=== PATIENT | female | born 1990 | race Caucasian/White ===

== ENCOUNTER 2021-10-08 09:19 | Inpatient (IN) | payer OTHER ==
[~2021-10-08] VITALS: Ht 157.5 cm; Wt 121.6 kg
[2021-10-08] MEDS ORDERED: TERBUTALINE SULFATE 1 MG/ML VIAL SUBCUT ONE (10:00)
[2021-10-08] MEDS ORDERED: OXYTOCIN/0.9 % SODIUM CHLORIDE 1,000 ML IV SCH (10:00)
[2021-10-08] MEDS ORDERED: BETAMET ACET/BETAMET NA PH 30 MG/5 ML VIAL IM ONE (10:00)
[2021-10-08 11:03] LABS: BASOPHILS # (AUTO) 0.3 K/uL (0.0-0.2); BASOPHILS % (AUTO) 3.9 % (0.0-2.0); EOSINOPHILS % (AUTO) 0.5 % (0.0-4.0); HEMATOCRIT 37.9 % (36-48); HEMOGLOBIN 12.6 g/dL (12.0-16.0); LYMPHOCYTES # (AUTO) 1.6 K/uL (1.0-5.5); LYMPHOCYTES % (AUTO) 17.8 % (20.5-51.5); MEAN CORPUSCULAR HEMOGLOBIN 29 pg (27-31); MEAN CORPUSCULAR HGB CONC 33 % (32-36); MEAN CORPUSCULAR VOLUME 87 fL (79.0-98.0); MONOCYTES # (AUTO) 0.5 K/uL (0.0-1.0); MONOCYTES % (AUTO) 5.3 % (1.7-9.3); NEUTROPHILS # (AUTO) 6.4 K/uL (1.8-7.7); NEUTROPHILS % (AUTO) 72.5 % (40.0-70.0); PLATELET COUNT (AUTO) 266 K/uL (130-430); RED BLOOD CELL COUNT(AUTO) 4.34 MIL/uL (4.2-6.2); RED CELL DISTRIBUTION WIDTH 14.7 % (9.0-15.0); WHITE BLOOD COUNT (AUTO) 8.8 K/uL (4.8-10.8)
[2021-10-08 11:11] LABS: INR 0.9 (0.8-1.2); PROTHROMBIN TIME 9.2 SECS (9.5-12.5)
[2021-10-08 11:30] VITALS: BP_SYST 121
[2021-10-08 11:44] LABS: ALBUMIN 2.7 g/dL (3.4-4.8); CALCIUM 8.4 mg/dL (8.4-11.0); CREATININE 0.81 mg/dL (0.55-1.30); TOTAL BILIRUBIN 0.3 mg/dL (0.0-1.0)
[2021-10-08] MEDS: LABETALOL HCL 100 MG TABLET PO SCH ×2 (15:19→21:08)
[2021-10-09] MEDS ORDERED: HYDROcodone/ACETAMIN 5-325 MG TAB (NORCO/ VICODIN) PO PRN (00:45)
[2021-10-09] MEDS ORDERED: FIORCET PO PRN (00:45)
[2021-10-09] MEDS ORDERED: ACETAMINOPHEN 325 MG TABLET PO PRN (00:45)
[2021-10-09] MEDS: LABETALOL HCL 100 MG TABLET PO SCH ×3 (08:57→20:51)
[2021-10-09] MEDS ORDERED: BETAMET ACET/BETAMET NA PH 30 MG/5 ML VIAL IM ONE (10:00)
--- NOTE | 2021-10-09 12:30 | NUR ---
Dietitian Recommendations * Continue regular diet * RD provided [address]ISELA ALONOS RD Please refer to Nutrition Assessment for details. Addendum: 10/09/21 at [address] Amended: Links added.
[2021-10-09] MEDS ORDERED: DINOPROSTONE 10 MG SUPP VG ONE (15:45)
[2021-10-10] MEDS ORDERED: TEMAZEPAM 15 MG CAPSULE PO PRN (02:15)
[2021-10-10] MEDS: MISOPROSTOL 100 MCG TABLET (CYTOTEC) PO PRN ×4 (02:27→16:02)
[2021-10-10] MEDS: LR 1,000 ML IV SCH ×2 (02:28→20:46)
[2021-10-10] MEDS ORDERED: ONDANSETRON HCL 4 MG/2 ML VIAL ONE (08:39)
[2021-10-10] MEDS: ONDANSETRON HCL 4 MG/2 ML VIAL IVP PRN (08:43)
[2021-10-10] MEDS: LABETALOL HCL 100 MG TABLET PO SCH ×4 (09:01→22:05)
[2021-10-10] MEDS: NALBUPHINE HCL 10 MG/ML AMP IVP PRN (20:42)
[2021-10-11] MEDS: NALBUPHINE HCL 10 MG/ML AMP IVP PRN (02:42)
[2021-10-11] MEDS: LR 1,000 ML IV SCH ×2 (04:43→22:34)
[2021-10-11] MEDS: ONDANSETRON HCL 4 MG/2 ML VIAL IVP PRN (08:00)
[2021-10-11] MEDS: LABETALOL HCL 100 MG TABLET PO SCH ×2 (09:11→17:14)
[2021-10-11] MEDS ORDERED: fentaNYL CITRATE/PF 100 MCG/2 ML AMP ONE (09:42)
[2021-10-11] MEDS ORDERED: ROPIVACAINE HCL/PF 0.2% 0 ML ONE (09:44)
[2021-10-11] MEDS ORDERED: ROPIVACAINE HCL/PF 0.2% 200 ML ONE (09:45)
[2021-10-11] MEDS ORDERED: AMPICILLIN SODIUM 2 GM VIAL ONE (11:27)
[2021-10-11] MEDS ORDERED: AMPICILLIN SODIUM 2 GM in NS 100 ML IV ONE (12:00)
[2021-10-11] MEDS ORDERED: FENT2mCg/mL-ROPIVA0.2%/NS EPID 200 ML EP SCH (12:00)
[2021-10-11] MEDS ORDERED: LR 500 ML IV ONE (12:00)
[2021-10-11] MEDS: AMPICILLIN SODIUM 1 GM in NS 50 ML IV SCH ×2 (15:32→19:27)
[2021-10-11] MEDS ORDERED: CEFAZOLIN 2 GM IVPB PREMIX 50 ML IV ONE (21:30)
[2021-10-11] MEDS ORDERED: BUPIVACAINE /PF 0.5% 30 ML VIAL ONE (23:02)
[2021-10-11] MEDS ORDERED: NALOXONE HCL 0.4 MG/ML AMP (NARCAN) IVP PRN ×2 (23:30)
[2021-10-11] MEDS ORDERED: MORPHINE SULFATE 10MG/10ML PF AMP EP SCH (23:30)
[2021-10-11] MEDS ORDERED: ONDANSETRON HCL 4 MG/2 ML VIAL IVP PRN ×2 (23:30)
[2021-10-11] MEDS ORDERED: DIPHENHYDRAMINE INJ 50 MG/ML VIAL IVP PRN (23:30)
[2021-10-11] MEDS ORDERED: fentaNYL CITRATE/PF 100 MCG/2 ML AMP IVP PRN ×2 (23:30)
[2021-10-11] MEDS ORDERED: NALBUPHINE HCL 10 MG/ML AMP IVP PRN (23:30)
[2021-10-11] MEDS ORDERED: METOCLOPRAMIDE HCL 10 MG/2 ML VIAL IVP PRN (23:30)
[2021-10-11 23:56] VITALS: BP_SYST 132
[2021-10-12] MEDS ORDERED: NALOXONE HCL 0.4 MG/ML AMP (NARCAN) IVP PRN
[2021-10-12] MEDS ORDERED: ANUSOL 1 EA SUPP.RECT (PREPARATION H) RC PRN
[2021-10-12] MEDS ORDERED: BISACODYL 10 MG/SUPPOSITORY RC PRN
[2021-10-12] MEDS ORDERED: LR 1,000 ML IV SCH
[2021-10-12] MEDS ORDERED: MEASLES,MUMPS&RUBELLA VACC/PF 12500 UNIT/0.5 ML VIAL SUBQ PRN
[2021-10-12] MEDS ORDERED: HYDROcodone/ACETAMIN 5-325 MG TAB (NORCO/ VICODIN) PO PRN
[2021-10-12] MEDS ORDERED: TEMAZEPAM 15 MG CAPSULE PO PRN
[2021-10-12] MEDS ORDERED: RHO(D) IMMUNE GLOBULIN/MALTOSE 1500 UNITS/1.3 ML (WINHRO) IM PRN
[2021-10-12] MEDS ORDERED: LANOLIN 7 GM OINT. TP PRN
[2021-10-12] MEDS ORDERED: DIPH-TET-PERTUS Vaccine 0.5 ML VIAL (ADACEL) I.M. PRN
[2021-10-12] MEDS ORDERED: OXYCODONE/ACETAMINOPHEN *10*mg/325 mg TABLET PO PRN
[2021-10-12] MEDS: CEFAZOLIN 1 GM IVPB PREMIX 50 ML IV SCH ×2 (06:00→11:57)
[2021-10-12] MEDS: KETOROLAC TROMETHAMINE 60 MG/2 ML VIAL IM PRN ×2 (06:00→18:04)
[2021-10-12 08:09] LABS: BASOPHILS # (AUTO) 0.1 K/uL (0.0-0.2); BASOPHILS % (AUTO) 0.8 % (0.0-2.0); EOSINOPHILS # (AUTO) 0.2 K/uL (0.0-0.4); EOSINOPHILS % (AUTO) 1.4 % (0.0-4.0); HEMATOCRIT 31.5 % (36-48); HEMOGLOBIN 10.5 g/dL (12.0-16.0); LYMPHOCYTES # (AUTO) 2.7 K/uL (1.0-5.5); LYMPHOCYTES % (AUTO) 18.4 % (20.5-51.5); MEAN CORPUSCULAR HEMOGLOBIN 30 pg (27-31); MEAN CORPUSCULAR HGB CONC 33 % (32-36); MEAN CORPUSCULAR VOLUME 89 fL (79.0-98.0); MONOCYTES # (AUTO) 0.8 K/uL (0.0-1.0); MONOCYTES % (AUTO) 5.4 % (1.7-9.3); NEUTROPHILS # (AUTO) 10.7 K/uL (1.8-7.7); PLATELET COUNT (AUTO) 251 K/uL (130-430); RED BLOOD CELL COUNT(AUTO) 3.54 MIL/uL (4.2-6.2); RED CELL DISTRIBUTION WIDTH 15.1 % (9.0-15.0); WHITE BLOOD COUNT (AUTO) 14.5 K/uL (4.8-10.8)
[2021-10-12] MEDS: LABETALOL HCL 100 MG TABLET PO SCH ×3 (09:02→23:48)
[2021-10-12] MEDS ORDERED: KETOROLAC TROMETHAMINE 30 MG VIAL IVP SCH (12:00)
[2021-10-12] MEDS: OXYTOCIN/0.9 % SODIUM CHLORIDE 1,000 ML IV SCH ×2 (15:53→16:01)
[2021-10-12] MEDS: DOCUSATE SODIUM 100 MG CAPSULE PO SCH ×2 (18:03→23:47)
[2021-10-12] MEDS: SENNOSIDES/DOCUSATE SODIUM 1 TAB TABLET(SENOKOT-S) PO SCH (21:00)
[2021-10-12] MEDS: SIMETHICONE 80 MG TAB.CHEW PO PRN (23:47)
[2021-10-12] MEDS: IBUPROFEN 600 MG TABLET PO SCH (23:48)
[2021-10-13] MEDS: IBUPROFEN 600 MG TABLET PO SCH ×3 (04:51→18:00)
[2021-10-13] MEDS: SIMETHICONE 80 MG TAB.CHEW PO PRN ×2 (08:46→14:59)
[2021-10-13] MEDS: DOCUSATE SODIUM 100 MG CAPSULE PO SCH ×2 (08:46→20:34)
[2021-10-13] MEDS: LABETALOL HCL 100 MG TABLET PO SCH ×3 (08:47→20:34)
[2021-10-13] MEDS: OXYCODONE/ACETAMINOPHEN 5-325 TABLET PO PRN ×2 (14:59→18:33)
[2021-10-13] MEDS: SENNOSIDES/DOCUSATE SODIUM 1 TAB TABLET(SENOKOT-S) PO SCH (20:35)
[2021-10-13 21:06] LABS: FTA-Ab (T PALLIDUM) Non Reactive (Non Reactive)
[2021-10-14] MEDS: IBUPROFEN 600 MG TABLET PO SCH ×3 (00:03→12:22)
[2021-10-14] MEDS: SIMETHICONE 80 MG TAB.CHEW PO PRN (00:08)
[2021-10-14] MEDS ORDERED: BUPIVACAINE /PF 0.5% 30 ML VIAL INJ ONE (23:00)
[2021-10-14] MEDS ORDERED: LR 1,000 ML IV.SOLN IV ONE (23:00)
[2021-10-14] MEDS ORDERED: NS IRRIG SOLN 1000 ML IR ONE (23:00)
[2021-10-14] MEDS ORDERED: CEFAZOLIN 2 GM IVPB PREMIX 50 ML IV ONE (23:00)
== END 2021-10-14 14:00 | disposition home or self-care (01) | DRG 786 ==
LOC: OBSVTOIN 09:19 → SPU 09:19
PROVIDERS: ADMIT Specialist; ATTEND Specialist
PROC: 3E033VJ Introduction of Other Hormone into Peripheral Vein, Percutaneous Approach (ICD-10-PCS; 2021-10-11)
PROC: 10D00Z1 Extraction of Products of Conception, Low, Open Approach (ICD-10-PCS; principal; 2021-10-11 23:00)
DX: O36.5930 Maternal care for other known or suspected poor fetal growth, third trimester, not applicable or unspecified (principal); O60.14X0 Preterm labor third trimester with preterm delivery third trimester, not applicable or unspecified; O41.03X0 Oligohydramnios, third trimester, not applicable or unspecified; Z20.822 Contact with and (suspected) exposure to COVID-19; O62.0 Primary inadequate contractions; O61.0 Failed medical induction of labor; O13.4 Gestational [pregnancy-induced] hypertension without significant proteinuria, complicating childbirth; Z3A.36 36 weeks gestation of pregnancy; Z37.0 Single live birth
CPT/HCPCS: 36415; 80053; 85025; 85384; 85610-TC; 85730-TC; 86592; 86780; 86886; 86900; 86901; 94760; J0290; J0690; J0702; J1885; J2300; J2405; J2590; J2795; J3010; J3490; J7120